=== PATIENT | female | born 1975 | race Caucasian/White ===

== ENCOUNTER → 2016-10-12 | Outpatient (CLI) | payer OTHER ==
--- NOTE | 2016-10-16 09:56 | MM ---
Reason for exam: screening (asymptomatic). Last mammogram was performed 1 year and 1 month ago. History: Patient is postmenopausal. Family history of breast cancer in maternal aunt at age 65 and breast cancer in cousin at age 40. Saline implants in both breasts, 2000. Took hormonal contraceptives for 3 years. Physical Findings: A clinical breast exam by your physician is recommended on an annual basis and results should be correlated with mammographic findings. MG 3D Screen Mammo Imp/Cad Bilateral CC, MLO, and ID view(s) were taken. Prior study comparison: September 26, 2015, bilateral MG 3d diag mammo imp w/cad BETTY. August 16, 2014, bilateral MG diag mamm implants BETTY w CAD. The breast tissue is extremely dense which could obscure a lesion on mammography. No significant changes when compared with prior studies. ASSESSMENT: Benign, BI-RAD 2 RECOMMENDATION: Routine screening mammogram of both breasts in 1 year.
== END | disposition home or self-care (01) ==
LOC: RADMAMWWP 10:17
PROVIDERS: ATTEND Internal Medicine
DX: Z12.31 Encounter for screening mammogram for malignant neoplasm of breast (principal)
CPT/HCPCS: 77063; G0202

== ENCOUNTER → 2018-04-21 | Outpatient (CLI) | payer OTHER ==
--- NOTE | 2018-04-22 07:47 | MM ---
Reason for exam: screening (asymptomatic). Last mammogram was performed 1 year and 6 months ago. History: Patient is postmenopausal. Family history of breast cancer in maternal aunt at age 65 and breast cancer in cousin at age 40. Saline implants in both breasts, 2000. Took hormonal contraceptives for 3 years. Physical Findings: A clinical breast exam by your physician is recommended on an annual basis and results should be correlated with mammographic findings. MG 3D Screen Mammo Imp/Cad Bilateral CC, MLO, and ID view(s) were taken. Prior study comparison: October 12, 2016, bilateral MG 3d screen mammo imp/cad. September 26, 2015, bilateral MG 3d diag mammo imp w/cad BETTY. The breast tissue is extremely dense which could obscure a lesion on mammography. Bilateral saline implants intact. No significant changes when compared with prior studies. ASSESSMENT: Benign, BI-RAD 2 RECOMMENDATION: Routine screening mammogram of both breasts in 1 year.
== END | disposition home or self-care (01) ==
LOC: RADMAMWWP 11:01
PROVIDERS: ATTEND Internal Medicine
DX: Z12.31 Encounter for screening mammogram for malignant neoplasm of breast (principal)
CPT/HCPCS: 77063; 77067

== ENCOUNTER → 2018-05-02 | Outpatient (CLI) | payer OTHER ==
[2018-05-02 14:30] LABS: Basophils # (A) 0.1 k/uL (0-0.2); Basophils % (A) 1 %; Eosinophils # (A) 0.1 k/uL (0-0.7); Eosinophils % (A) 2 %; HCT 39.5 % (34.0-46.0); HGB 12.4 gm/dL (11.4-16.0); Lymphocytes # (A) 1.6 k/uL (1.0-4.8); Lymphocytes % (A) 32 %; MCH 29.4 pg (25.0-35.0); MCHC 31.3 g/dL (31.0-37.0); MCV 93.9 fL (80.0-100.0); Mean Platelet Volume 6.4; Monocytes # (A) 0.3 k/uL (0-1.0); Monocytes % (A) 6 %; Neutrophils # (A) 2.9 k/uL (1.3-7.7); Neutrophils % (A) 58 %; Platelet Count 233 k/uL (150-450); RBC 4.21 m/uL (3.80-5.40); RDW 12.7 % (11.5-15.5); WBC 5.1 k/uL (3.8-10.6)
[2018-05-02 19:40] LABS: Anion Gap 5.4 mmol/L (4.00-12.00); Calcium 9.6 mg/dL (8.7-10.3); Carbon Dioxide 28.6 mmol/L (21.6-31.8)
[2018-05-02 22:34] LABS: Hemoglobin A1C 5.4 % (4.0-6.0)
== END ==
LOC: LABWHC1 13:37
PROVIDERS: ATTEND Internal Medicine
DX: J30.2 Other seasonal allergic rhinitis (principal); L72.3 Sebaceous cyst; E78.49 Other hyperlipidemia; Z02.89 Encounter for other administrative examinations; Z12.31 Encounter for screening mammogram for malignant neoplasm of breast
CPT/HCPCS: 36415; 80048; 82306; 83036; 84443; 85025

== ENCOUNTER → 2018-07-14 | Outpatient (CLI) | payer OTHER ==
[2018-07-14 16:29] LABS: LDL Cholesterol,Calculated 107.4 mg/dL (0.0-131.0); VLDL Calculation 13.6 mg/dL (5.00-40.00)
== END | disposition home or self-care (01) ==
LOC: LABWHC1 09:47
PROVIDERS: ATTEND Internal Medicine
DX: Z02.89 Encounter for other administrative examinations (principal); J30.2 Other seasonal allergic rhinitis
CPT/HCPCS: 36415; 80061

== ENCOUNTER → 2019-10-21 | Outpatient (CLI) | payer OTHER ==
--- NOTE | 2019-10-22 10:31 | MM ---
Reason for exam: screening (asymptomatic). Last mammogram was performed 1 year and 6 months ago. History: Patient is postmenopausal. Family history of breast cancer in maternal aunt at age 65 and breast cancer in cousin at age 40. Saline implants in both breasts, 2000. Took hormonal contraceptives for 3 years. Physical Findings: A clinical breast exam by your physician is recommended on an annual basis and results should be correlated with mammographic findings. MG 3D Screen Mammo Imp/Cad Bilateral CC, MLO, and ID view(s) were taken. Prior study comparison: April 21, 2018, bilateral MG 3d screen mammo imp/cad. October 12, 2016, bilateral MG 3d screen mammo imp/cad. The breast tissue is extremely dense which could obscure a lesion on mammography. Bilateral implants are in place. ASSESSMENT: Benign, BI-RAD 2 RECOMMENDATION: Routine screening mammogram of both breasts in 1 year. Manage patient on a clinical basis.
== END | disposition home or self-care (01) ==
LOC: RADMAMWWP 13:49
PROVIDERS: ATTEND Internal Medicine
DX: Z12.31 Encounter for screening mammogram for malignant neoplasm of breast (principal)
CPT/HCPCS: 77063; 77067

== ENCOUNTER → 2020-12-07 | Outpatient (CLI) | payer OTHER ==
--- NOTE | 2020-12-08 13:54 | MM ---
Reason for exam: screening (asymptomatic). Last mammogram was performed 1 year and 2 months ago. History: Patient is postmenopausal. Family history of breast cancer in maternal aunt at age 65 and breast cancer in cousin at age 40. Saline implants in both breasts, 2000. Took hormonal contraceptives for 3 years. Physical Findings: A clinical breast exam by your physician is recommended on an annual basis and results should be correlated with mammographic findings. MG 3D Screen Mammo Imp/Cad Bilateral CC, MLO, and ID view(s) were taken. Prior study comparison: October 21, 2019, bilateral MG 3d screen mammo imp/cad. April 21, 2018, bilateral MG 3d screen mammo imp/cad. The breast tissue is extremely dense which could obscure a lesion on mammography. There is no discrete abnormality. Bilateral subpectoral implants redemonstrated. ASSESSMENT: Benign, BI-RAD 2 RECOMMENDATION: Routine screening mammogram of both breasts in 1 year.
== END | disposition home or self-care (01) ==
LOC: RADMAMWWP 14:58
PROVIDERS: ATTEND Obstetrics & Gynecology
DX: Z12.31 Encounter for screening mammogram for malignant neoplasm of breast (principal); Z80.3 Family history of malignant neoplasm of breast; Z78.0 Asymptomatic menopausal state
CPT/HCPCS: 77063; 77067

== ENCOUNTER → 2021-03-31 | Outpatient (CLI) | payer OTHER ==
[2021-03-31 19:27] LABS: Basophils # (A) 0.08 X 10*3/uL (0.00-0.10); Basophils % (A) 1.3 %; Eosinophils # (A) 0.07 X 10*3/uL (0.04-0.35); Eosinophils % (A) 1.1 %; HCT 39.6 % (37.2-46.3); HGB 12.9 g/dL (12.0-15.0); Immature Grans, Automated 0.3 %; Lymphocytes # (A) 1.81 X 10*3/uL (0.90-5.00); Lymphocytes % (A) 28.8 %; MCH 30.1 pg (27.0-32.0); MCHC 32.6 g/dL (32.0-37.0); MCV 92.3 fL (80.0-97.0); Mean Platelet Volume 9.4 fL (9.5-12.2); Monocytes # (A) 0.45 X 10*3/uL (0.20-1.00); Monocytes % (A) 7.2 %; NRBC Per 100 WBC 0 /100 WBCS (0.0-0.0); Neutrophils # (A) 3.86 X 10*3/uL (1.80-7.70); Neutrophils % (A) 61.3 %; Platelet Count 255 X 10*3/uL (140-440); RBC 4.29 X 10*6/uL (4.10-5.20); RDW 11.9 % (11.5-14.5); WBC 6.29 X 10*3/uL (4.50-10.00)
[2021-03-31 19:47] LABS: African American GFR (CKD) 112.8 (60.0-200.0); BUN/Creat Ratio 17.32 Ratio (12.00-20.00); Blood Urea Nitrogen 12.8 mg/dL (9.0-27.0); Calcium 9.6 mg/dL (8.7-10.3); Carbon Dioxide 26.9 mmol/L (20.0-27.5); Chloride 102 mmol/L (96-109); Chol/HDL Ratio 3.75 Ratio; Glucose 87 mg/dL (70-110); LDL Cholesterol,Calculated 130.6 mg/dL (0.0-131.0); Non-African American GFR(CKD) 97.3 (60.0-200.0); Potassium 4.5 mmol/L (3.5-5.5); Sodium 140 mmol/L (135-145)
== END | disposition home or self-care (01) ==
LOC: LABWHC1 12:32
PROVIDERS: ATTEND Internal Medicine
DX: Z00.00 Encounter for general adult medical examination without abnormal findings (principal); K59.04 Chronic idiopathic constipation; E78.49 Other hyperlipidemia; J30.2 Other seasonal allergic rhinitis
CPT/HCPCS: 36415; 80048; 80061; 84443; 85025

== ENCOUNTER → 2021-10-26 | Outpatient (CLI) | payer OTHER ==
--- NOTE | 2021-10-27 19:22 | MM ---
Reason for Exam: Screening (asymptomatic). Last screening mammogram was performed 11 month(s) ago. Patient History: Menarche at age 11. First Full-Term at age 21. Postmenopausal. Patient used Hormonal Contraceptives for 3 years. 2000, Bilateral Implants. Maternal cousin had breast cancer, age 40. Maternal aunt had breast cancer, age 65. Risk Values: [place] 5 year model risk: 0.8%. NCI Lifetime model risk: 8.4%. Prior Study Comparison: 04/21/2018 Bilateral Screening Mammogram, [facility]. 10/21/2019 Bilateral Screening Mammogram, [facility]. 12/07/2020 Bilateral Screening Mammogram, [facility]. Tissue Density: The breast tissue is extremely dense which could obscure a lesion on mammography. Findings: Analyzed By CAD. Bilateral breast implants present. There is no suspicious group of microcalcifications or new suspicious mass in either breast. Overall Assessment: Negative, BI-RAD 1 Management: Screening Mammogram of both breasts in 1 year. A clinical breast exam by your physician is recommended on an annual basis and results should be correlated with mammographic findings. Electronically signed and approved by: Suhas Del Valle DO
== END | disposition home or self-care (01) ==
LOC: RADMAMWWP 15:03
PROVIDERS: ATTEND Internal Medicine
DX: Z12.31 Encounter for screening mammogram for malignant neoplasm of breast (principal); Z78.0 Asymptomatic menopausal state; Z80.3 Family history of malignant neoplasm of breast
CPT/HCPCS: 77063; 77067